=== PATIENT | male | born 2000 | race Two or more races ===

== ENCOUNTER 2025-02-18 05:49 | Emergency (ER) | payer MEDICAID, OTHER ==
[~2025-02-18] VITALS: Ht 180.3 cm; Wt 130.0 kg
[2025-02-18 07:41] VITALS: BP 130/64; PULSE 109; RESP 19; TEMP 98; O2SAT 100
[2025-02-18] MEDS ORDERED: DIPH25CA66 PO (07:53)
[2025-02-18] MEDS ORDERED: PER60TP TOP (07:53)
--- NOTE | 2025-02-18 07:54 | ED.PDOC ---
SCRIBE Scribe Authentication: Beverly Trujillo , certified that the note below was transcribed by me on 02/18/25 at 07:17 HR for Provider: History of Present Illness(SKN Chief Complaint: Body Pain Time Seen by MD: 06:40 History of Present Illness: Nurses Notes, Medications, Allergies Allergies: Coded Allergies: NO KNOWN ALLERGIES (Unverified , 02/18/25) Information Source: Patient Mode of Arrival: EMS Severity: Moderate Timing: Months, Came on: Gradually Duration: Since onset Location: Generalized Mechanism: Scabies Developed: Pruritus, Rash Occurence: Indoors Object: Unknown Condition of Object: None Retained Foreign Body: No Wound Type: Papule Immunization Status of Animal: NA Tetanus: UTD History of: Previous Similar Rash Associated Signs and Symptoms: Redness, Red Streaking Past Medical History Past Medical History (Other): Cirrhosis Surgical History (Other): eye surgery Family History Family History: Reviewed,noncontributory to illness, No family hx of Cancer, No family hx of DM, No family hx of Heart stefania, No family hx of HTN, No family hx ofKidney stefania, No family hx of Liver stefania, No family hx of Lung stefania, No family hx of Stroke Social History Smoker: Non-Smoker Alcohol: Heavy Drugs: Denies Drug Use Lives In: Homeless Constitutional: denies: chills, diaphoresis, fatigue, fever, malaise, sweats, weakness, others EENTM: denies: blurred vision, double vision, ear bleeding, ear discharge, ear drainage, ear pain, ear ringing, eye pain, eye redness, hearing loss, mouth pain, mouth swelling, nasal discharge, nose bleeding, nose congestion, nose pain, photophobia, tearing, throat pain, throat swelling, voice changes, others Respiratory: denies: cough, hemoptysis, orthopnea, SOB at rest, shortness of breath, SOB with excertion, stridor, wheezing, others Cardiovascular: denies: chest pain, dizzy spells, diaphoresis, Dyspnea on exertion, edema, irregular heart beat, left arm pain, lightheadedness, palpitations, PND, syncope, others Gastrointestinal: denies: abdomen distended, abdominal pain, blood streaked bowels, constipated, diarrhea, dysphagia, difficulty swallowing, hematemesis, melena, nausea, poor appetite, poor fluid intake, rectal bleeding, rectal pain, vomiting, others Genitourinary: denies: burning, dysuria, flank pain, frequency, hematuria, incontinence, penile discharge, penile sore, pain, testicle pain, testicle s welling, urgency, others Neurological: denies: dizziness, fainting, headache, left sided numbness, left sided weakness, numbness, paresthesia, pre-existing deficit, right sided numbness, right sided weakness, seizure, speech problems, tingling, tremors, weakness, others Musculoskeletal: denies: back pain, gout, joint pain, joint swelling, muscle pain, muscle stiffness, neck pain, others Integumetry: reports: dryness, lesions, rash; denies: bruises, change in color, change in hair/nails, laceration, lumps, wounds, others Allergic/Immunocompromised: denies: Difficulty Healing, Frequent Infections, Hives, Itching, others Hematologic/Lymphatic: denies: anemia, blood clots, easy bleeding, easy bruising, swollen glands, others Endocrine: denies: excessive hunger, excessive sweating, excessive thirst, excessive urination, flushing, intolerance to cold, intolerance to heat, unexplained weight gain, unexplained weight loss, others Psychiatric: denies: anxiety, bipolar disorder, depression, hopeless, panic disorder, schizophrenia, sleepless, suicidal, others All Other Systems: Reviewed and Negative Physical Exam General Appearance: Mild Distress, Thin HEENT: Normal ENT Inspection, PERRL/EOMI, Pharynx Normal, TMs Normal Neck: Full Range of Motion, Non-Tender, Normal, Normal Inspection Respiratory: Chest Non-Tender, Lungs Clear, No Accessory Muscle Use, No Respiratory Distress, Normal Breath Sounds Cardiovascular: No Edema, No JVD, No Murmur, No Gallop, Normal Peripheral Pulses, Regular Rate/Rhythm Breast Exam: Deferred Gastrointestinal: No Organomegaly, Non Tender, No Pulsatile Mass, Normal Bowel Sounds, Soft Genitalia: Deferred Pelvic: Deferred Rectal: Deferred Extremities: No calf tenderness, Normal capillary refill, Normal inspection, Normal range of motion, Non-tender, No pedal edema Neurologic: Alert, wool washer feeder II-XII nml as Tested, No Motor Deficits, Normal Affect, Normal Mood, No Sensory Deficits Cerebellar Function: Normal Reflexes: Normal Skin: Dry, Normal Color, Rash, Wounds Peripheral Pulses: 1+ carotid (R), 1+ carotid (L) Lymphatic: No Adenopathy Was a procedure done? Was a procedure done?: No Differential Diagnosis (INTG) Differential Diagnosis: Insect Envenomation Differential Diagnosis: Contact Dermatitis, Scabies Differential Diagnosis: N/A Abscess: N/A Differential Diagnosis: N/A X-Ray, Labs, Meds, VS Vital Signs Date Time Temp Pulse Resp B/P (MAP) Pulse Ox O2 Delivery O2 Flow Rate FiO2 02/18/25 05:49 99.1 112 18 142/92 98 99.1 X-Ray, Labs, Meds, VS Comment Patient presented to the [facility] complaining of body pain and extreme itching duration . is one year was diagnosed with scabies several times with recurrences patient is homeless Time of 1ST Reevaluation: 07:26 Reevaluation 1ST: Unchanged Consultation: PCP Patient Education/Counseling: Diagnosis, Treatment, Prognosis, Need For Follow Up Family Education/Counseling: Diagnosis, Treatment, Prognosis, Need For Follow Up, No Family Present SEPSIS Sepsis Screen Date sepsis recognized/suspect: Feb 18, 2025 Time Sepsis recognized/suspect: 0549 Recent Procedure: No On Antibiotic Therapy: No Respiratory Rate >20: No Heart Rate >90: No Temp<36 C (96.8 F) or >38.3 C: No SBP <90 or MAP <65 mmHG: No New Acute Mental Status Change: No Is the patient on CPAP, BIPAP,: Yes Vital Signs Date Time Temp Pulse Resp B/P (MAP) Pulse Ox O2 Delivery O2 Flow Rate FiO2 02/18/25 05:49 99.1 112 18 142/92 98 99.1 Departure 1 Departure Time of Disposition: 07:27 Impression: Primary Impression: Scabies infestation Additional Impressions: Pruritus Homelessness Disposition: 01 HOME / SELF CARE / HOMELESS Condition: Fair Additional Instructions: Needs strict hygiene and multiple showers e-Prescriptions Diphenhydramine Hcl (Benadryl Allergy) 25 Mg Cap 1 CAP PO TID for 10 Days, #30 CAP 1 Refill Prov: SHARIFA TRUJILLO MD 02/18/25 Permethrin (Elimite) 5 % Cre 1 APPLIC TOP ONCE for 2 Days, #120 GRAMS 1 Refill Prov: SHARIFA TRUJILLO MD 02/18/25 Discharged With: Self Critical Care Note Critical Care Time?: No Stability Stability form required: No [email or web address] Provider Statement: The above service was scribed on my behalf by the person named below and I attest to the accuracy of the note. Heart Score Heart Score: Heart Score Response (Comments) Value History N/A 0 EKG N/A 0 Age <45 0 Risk Factors 1 or 2 risk factors 1 Troponin N/A 0 Total 1 SHARIFA TRUJILLO MD Feb 18, 2025 07:53
== END 2025-02-18 08:02 | disposition home or self-care (01) ==
LOC: EDBD 05:49 → ER 05:49
DX: B86 Scabies (principal); L29.9 Pruritus, unspecified; F10.90 Alcohol use, unspecified, uncomplicated; Z59.00 Homelessness unspecified

== ENCOUNTER 2025-02-22 15:08 | Emergency (ER) | payer MEDICAID ==
[~2025-02-22] VITALS: Ht 172.7 cm; Wt 59.0 kg
[~2025-02-22 15:08] MED LIST: DIPH25CA66 PO; PER60TP TOP
--- NOTE | 2025-02-22 15:32 | ED.PDOC ---
History of Present Illness HPI Comments 25-year-old male BIBCaterina with prior medical history of cirrhosis: Surgical history of eye surgery and a chief complaint of scabies. EMS report on finding the patient in front of the best by covered in cream for his scabies. Patient is currently complaining of full body pain which is a 10/10 on the pain scale. Blood pressure on scene was 152/80. Note patient is also homeless. Denies any other symptoms at this time. Denies chills, fever, N/V/D, SOB, CP. No other associated symptoms, modifiers, recent injuries or sick contacts present at this time. 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, Medications, Allergies Allergies: Coded Allergies: NO KNOWN ALLERGIES (Unverified , 02/18/25) Home Meds Active Scripts Diphenhydramine Hcl (Benadryl Allergy) 25 Mg Cap, 1 CAP PO TID for 10 Days, #30 CAP 1 Refill Prov:SHARIFA TRUJILLO MD 02/18/25 Permethrin (Elimite) 5 % Cre, 1 APPLIC TOP ONCE for 2 Days, #120 GRAMS 1 Refill Prov:SHARIFA TRUJILLO MD 02/18/25 Information Source: Patient Mode of Arrival: EMS Severity: Moderate Timing: Came on: Suddenly Duration: Since onset Prehospital treatment: None Past Medical History Past Medical History (Other): Cirrhosis Surgical History (Other): eye surgery Family History Family History: Reviewed,noncontributory to illness, Unknown Social History Smoker: Non-Smoker Alcohol: Heavy Drugs: Denies Drug Use Lives In: Homeless Constitutional: reports: others (Full body pain for scabies); denies: chills, diaphoresis, fatigue, fever, malaise, sweats, weakness EENTM: denies: blurred vision, double vision, ear bleeding, ear discharge, ear drainage, ear pain, ear ringing, eye pain, eye redness, hearing loss, mouth pain, mouth swelling, nasal discharge, nose bleeding, nose congestion, nose pain, photophobia, tearing, throat pain, throat swelling, voice changes, others Respiratory: denies: cough, hemoptysis, orthopnea, SOB at rest, shortness of breath, SOB with excertion, stridor, wheezing, others Cardiovascular: denies: chest pain, dizzy spells, diaphoresis, Dyspnea on exertion, edema, irregular heart beat, left arm pain, lightheadedness, palpitations, PND, syncope, others Gastrointestinal: denies: abdomen distended, abdominal pain, blood streaked bowels, constipated, diarrhea, dysphagia, difficulty swallowing, hematemesis, melena, nausea, poor appetite, poor fluid intake, rectal bleeding, rectal pain, vomiting, others Genitourinary: denies: burning, dysuria, flank pain, frequency, hematuria, incontinence, penile discharge, penile sore, pain, testicle pain, testicle swelling, urgency, others Neurological: denies: dizziness, fainting, headache, left sided numbness, left sided weakness, numbness, paresthesia, pre-existing deficit, right sided numbness, right sided weakness, seizure, speech problems, tingling, tremors, weakness, others Musculoskeletal: denies: back pain, gout, joint pain, joint swelling, muscle pain, muscle stiffness, neck pain, others Integumetry: denies: bruises, change in color, change in hair/nails, dryness, laceration, lesions, lumps, rash, wounds, others Allergic/Immunocompromised: denies: Difficulty Healing, Frequent Infections, Hives, Itching, others Hematologic/Lymphatic: denies: anemia, blood clots, easy bleeding, easy bruising, swollen glands, others Endocrine: denies: excessive hunger, excessive sweating, excessive thirst, excessive urination, flushing, intolerance to cold, intolerance to heat, unexplained weight gain, unexplained weight loss, others Psychiatric: denies: anxiety, bipolar disorder, depression, hopeless, panic disorder, schizophrenia, sleepless, suicidal, others All Other Systems: Reviewed and Negative Physical Exam General Appearance: Moderate Distress, Normal HEENT: Normal ENT Inspection, Pharynx Normal, TMs Normal Neck: Full Range of Motion, Non-Tender, Normal, Normal Inspection Respiratory: Chest Non-Tender, Lungs Clear, No Accessory Muscle Use, No Respiratory Distress, Normal Breath Sounds Cardiovascular: No Edema, No JVD, No Murmur, No Gallop, Normal Peripheral P ulses, Regular Rate/Rhythm Breast Exam: Deferred Gastrointestinal: No Organomegaly, Non Tender, No Pulsatile Mass, Normal Bowel Sounds, Soft Genitalia: Deferred Pelvic: Deferred Rectal: Deferred Extremities: No calf tenderness, Normal capillary refill, Normal inspection, Normal range of motion, Non-tender, No pedal edema Musculoskeletal : Apperance: Normal Neurologic: Alert, field clinical engineer II-XII nml as Tested, No Motor Deficits, Normal Affect, Normal Mood, No Sensory Deficits Cerebellar Function: Normal Reflexes: Normal Skin: Dry, Normal Color, Warm Peripheral Pulses: 3+ Radial (R), 3+ Radial (L) Lymphatic: No Adenopathy Was a procedure done? Was a procedure done?: No Differential Dx Considerations may include: Anxiety X-Ray, Labs, Meds, VS Vital Signs Date Time Temp Pulse Resp B/P (MAP) Pulse Ox O2 Delivery O2 Flow Rate FiO2 02/22/25 16:02 98.0 124 18 152/88 100 98.0 Patient alert. States that he has skin condition. Vitals stable. Answering questions. Saturation pristine on room air. Blood pressure slightly elevated. He does not take care himself. 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 No leg swelling. No shortness a breath. No chest pain. Medically cleared. No acute process. Was told to follow up with his primary care physician. Was told to come back if there is any problem. Time of 1ST Reevaluation: 15:28 Reevaluation 1ST: Improved Patient Education/Counseling: Diagnosis, Treatment, Prognosis Family Education/Counseling: No Family Present SEPSIS Sepsis Screen Physician Orders * Red Hat Engineer Consult (02/22/25 ) Vital Signs Date Time Temp Pulse Resp B/P (MAP) Pulse Ox O2 Delivery O2 Flow Rate FiO2 02/22/25 16:02 98.0 124 18 152/88 100 98.0 Departure 1 Departure Time of Disposition: 16:38 Impression: Primary Impression: Pruritus Additional Impression: Anxiety Disposition: 01 HOME / SELF CARE / HOMELESS Condition: Good Discharged With: Self Critical Care Note Critical Care Time?: No Stability Stability form required: No Heart Score Heart Score: Heart Score Response (Comments) Value History N/A 0 EKG N/A 0 Age N/A 0 Risk Factors N/A 0 Troponin N/A 0 Total 0 I personally scribed for VAMSHI VARGAS MD ([email or web address]) on 02/22/25 at 15:32. Electronically submitted by Anuj Hargrove ([email or web address]). VAMSHI VARGAS MD Feb 22, 2025 15:32
[2025-02-22 15:55] VITALS: PULSE 82; RESP 16; O2SAT 96
[2025-02-22 19:30] VITALS: PULSE 80; RESP 18; O2SAT 97
[2025-02-23 08:00] VITALS: BP 136/75; PULSE 76; RESP 18; TEMP 98; O2SAT 97
== END 2025-02-23 09:53 | disposition home or self-care (01) ==
LOC: EDBD 15:08 → EDUNIT# 15:08 → ER 15:08
DX: L29.9 Pruritus, unspecified (principal); F41.9 Anxiety disorder, unspecified; F10.90 Alcohol use, unspecified, uncomplicated; Z79.899 Other long term (current) drug therapy; Z59.00 Homelessness unspecified

== ENCOUNTER 2025-02-23 22:51 | Emergency (ER) | payer MEDICAID ==
[~2025-02-23] VITALS: Ht 182.9 cm; Wt 59.0 kg
[2025-02-23 23:24] LABS: Hematocrit 38.4 % (41.0-53.0); Hemoglobin 13.2 g/dL (13.5-17.5); Mean Corpuscular Hemoglobin 31.1 pg (28.0-32.0); Mean Corpuscular Volume 90.7 fL (80.0-100.0); Nucleated Red Blood Cells % 0.0 %
[2025-02-23 23:58] LABS: Chloride 106 mmol/L (98-107); Sodium 141 mmol/L (136-145)
[2025-02-23 23:59] LABS: Anion Gap 9 (5-15); Calcium 9.7 mg/dL (8.7-10.4); Carbon Dioxide 26 mmol/L (20-31)
--- NOTE | 2025-02-24 00:02 | ED.PDOC ---
History of Present Illness HPI Comments 25-year-old male who came to ER for suicide ideations. Patient is homeless, has a history of schizophrenia with has poor compliance to his medications. Patient states he has been feeling suicidal recently, plans on either drowning or shooting himself. States he also has been having auditory visual hallucina tions. Denies being homicidal. REVIEW OF SYSTEMS: General: No fever, no chills, or fatigue HEENT: No sore throat, no earache, no congestion, no neck pain. Cardiac: No chest pain. No palpitations. Lungs: No shortness of breath, no cough. GI: No nausea, no vomiting, no diarrhea, no constipation, no abdominal pain : No dysuria, frequency, or urgency. No hematuria. Musculoskeletal: No joint pain , no joint swelling, no extremity edema. Skin: No rash, no itching. Neuro: No headache, no dizziness, no weakness Psych: (+) schizophrenia (+) suicidal PHYSICAL EXAM: General: Awake, alert and oriented. No acute distress. Skin: Skin in warm, dry and intact without rashes or lesions. HEENT: The head is normocephalic and atraumatic. Conjunctivae are clear without exudates or hemorrhage. Sclera is non-icteric. Neck: Normal range of motion. No JVD. Cardiac: Regular rate Respiratory: No signs of respiratory distress. No Stridor. Extremities: Upper and lower extremities are atraumatic in appearance without deformity. Neurological: The patient is awake, alert and oriented to person, place, and time with normal speech. Speech is clear. There is no facial asymmetry. Psychiatric: Anxious appearing Chief Complaint: Suicidal Time Seen by MD: 00:02 Reviewed Notes: Nurses Notes Allergies: Coded Allergies: NO KNOWN ALLERGIES (Unverified , 02/18/25) Home Meds Active Scripts Diphenhydramine Hcl (Benadryl Allergy) 25 Mg Cap, 1 CAP PO TID for 10 Days, #30 CAP 1 Refill Prov:SHARIFA TRUJILLO MD 02/18/25 Permethrin (Elimite) 5 % Cre, 1 APPLIC TOP ONCE for 2 Days, #120 GRAMS 1 Refill Prov:SHARIFA TRUJILLO MD 02/18/25 Information Source: Patient Mode of Arrival: EMS Past Medical History PAST MEDICAL HISTORY: Schizophrenia Surgical History: Denies all surgeries Family History Family History: Reviewed,noncontributory to illness, Unknown Social History Smoker: Non-Smoker Alcohol: Heavy Drugs: Denies Drug Use Lives In: Homeless Was a procedure done? Was a procedure done?: No Differential Dx Considerations may include: Schizophrenia, suicide ideation, anxiety, depression X-Ray, Labs, Meds, VS Vital Signs Date Time Temp Pulse Resp B/P (MAP) Pulse Ox O2 Delivery O2 Flow Rate FiO2 02/24/25 03:57 98.0 86 20 145/86 (105) 95 98.0 02/24/25 03:57 95 Room Air* 0 21 02/23/25 22:51 98.3 81 16 127/83 98 98.3 Lab Test 02/23/25 23:15 Range/Units White Blood Count 8.0 4.4-10.8 10^3/uL Red Blood Count 4.24 L 4.5-5.90 10^6/uL Hemoglobin 13.2 L 13.5-17.5 g/dL Hematocrit 38.4 L 41.0-53.0 % Mean Corpuscular Volume 90.7 80.0-100.0 fL Mean Corpuscular Hemoglobin 31.1 28.0-32.0 pg Mean Corpuscular Hemoglobin Concent 34.3 32.0-36.0 g/dL Red Cell Distribution Width 12.2 11.8-14.3 % Platelet Count 307 140-450 10^3/uL Mean Platelet Volume 8.2 6.9-10.8 fL Neutrophils (%) (Auto) 59.6 37.0-80.0 % Lymphocytes (%) (Auto) 27.6 10.0-50.0 % Monocytes (%) (Auto) 11.0 0.0-12.0 % Eosinophils (%) (Auto) 0.7 0.0-7.0 % Basophils (%) (Auto) 1.1 0.0-2.0 % Neutrophils # (Auto) 4.8 1.6-8.6 10 ^3/uL Lymphocytes # (Auto) 2.2 0.4-5.4 10 ^3/uL Monocytes # (Auto) 0.9 0-1.3 10 ^3/uL Eosinophils # (Auto) 0.1 0-0.8 10 ^3/uL Basophils # (Auto) 0.1 0-0.2 10 ^3/uL Nucleated Red Blood Cells 0.0 % Sodium Level 141 136-145 mmol/L Potassium Level 3.4 L 3.5-5.1 mmol/L Chloride Level 106 98-107 mmol/L Carbon Dioxide Level 26 20-31 mmol/L Anion Gap 9 5-15 Blood Urea Nitrogen 7 L 9-23 mg/dL Creatinine 0.86 0.700-1.30 mg/dL Glomerular Filtration Rate Calc 122 >90 mL/min BUN/Creatinine Ratio 8.1 L 10.0-20.0 Serum Glucose 94 74-106 mg/dL Calcium Level 9.7 8.7-10.4 mg/dL Plasma/Serum Blood Alcohol < 3.0 <10 mg/dL Current Medications Medications (Trade) Dose Ordered Sig/Nan Route Start Time Stop Time Status Last Admin Diphenhydramine HCl (Benadryl Capsule) 25 mg ONCE ONCE PO 02/24/25 02:15 02/24/25 02:16 DC 02/24/25 02:59 Acetaminophen (Tylenol Tablet) 650 mg ONCE ONCE PO 02/24/25 04:45 02/24/25 04:46 DC 02/24/25 04:49 Time of 1ST Reevaluation: 23:58 Reevaluation 1ST: Unchanged Patient Education/Counseling: Other Family Education/Counseling: Other Change of Shift?: Yes (25-year-old male who presented to the emergency department with suicidal ideation. He was evaluated by Psychiatry in place on a voluntary hold. Pending placement at psychiatric facility.@ [address] Weir pending psychiatric placement at psychiatric facility. ) SEPSIS Sepsis Screen Date sepsis recognized/suspect: Feb 23, 2025 Time Sepsis recognized/suspect: 2250 Recent Procedure: No On Antibiotic Therapy: No Respiratory Rate >20: No Heart Rate >90: No Temp<36 C (96.8 F) or >38.3 C: No SBP <90 or MAP <65 mmHG: No New Acute Mental Status Change: No Is the patient on CPAP, BIPAP,: No Physician Orders * Psychiatric Consult (02/23/25 02:21) Sitter At Bedside (02/23/25 23:07) Urinalysis (02/23/25 23:07) Drug Screen (02/23/25 23:07) Soc Telemed Psych Consult (02/23/25 23:07) Vital Signs Date Time Temp Pulse Resp B/P (MAP) Pulse Ox O2 Delivery O2 Flow Rate FiO2 02/24/25 03:57 98.0 86 20 145/86 (105) 95 98.0 02/24/25 03:57 95 Room Air* 0 21 02/23/25 22:51 98.3 81 16 127/83 98 98.3 Laboratory Tests Test 02/23/25 23:15 White Blood Count 8.0 10^3/uL (4.4-10.8) Medications Medications Dose Ordered Sig/Nan Route Start Time Stop Time Status Last Admin Dose Admin Acetaminophen 650 mg ONCE ONCE PO 02/24/25 04:45 02/24/25 04:46 DC 02/24/25 04:49 Diphenhydramine HCl 25 mg ONCE ONCE PO 02/24/25 02:15 02/24/25 02:16 DC 02/24/25 02:59 Departure 1 Departure Time of Disposition: 06:00 Impression: Primary Impression: Suicidal ideation Disposition: 30 STILL A PATIENT Condition: Stable Critical Care Note Critical Care Time?: No Stability Stability form required: No Heart Score Heart Score: Heart Score Response (Comments) Value History N/A 0 EKG N/A 0 Age N/A 0 Risk Factors N/A 0 Troponin N/A 0 Total 0 I personally scribed for JUAN DAVID HORTON MD ([email or web address]) on 02/24/25 at 00:02. Electronically submitted by Osvaldo Max ([email or web address]). JUAN DAVID HORTON MD Feb 24, 2025 00:02
[2025-02-24 00:04] LABS: BUN/Creatinine Ratio 8.1 (10.0-20.0); Glucose 94 mg/dL (74-106)
[2025-02-24 00:12] LABS: Blood Urea Nitrogen 7 mg/dL (9-23); Potassium 3.4 mmol/L (3.5-5.1)
--- NOTE | 2025-02-24 02:51 | DVHINCON2 ---
Date of Service if different f: Feb 24, 2025 Time of Service: 02:30 Consult Consult Note PSYCHIATRY ED NEW CONSULT HPI: 25 yo pt with PPH of depression, ?delusional disorder, and anxiety presents to ED for safety, psychiatric stabilization, and possible med initiation in setting of homelessness, AH/grandiose delusions, depression, and passive SI. Psychiatry consulted for safety evaluation and recommendations in context of current presentation Pt reports over past several weeks experiencing worsening depressed mood, grandiose delusions - 'I met eber several times, he invited me to [employer] for private dinner", NC/NT AH and passive SI with plan to drown/shoot self although no actual intent. Identifies primary stress as unemployment, inadequate housing, etc. Denies HI/VH/paranoia/catatonic/manic/dissociative symptoms. Denies recent hx of impulsivity or engaging in risky/reckless behaviors Does not have active outpt MH services established at this time Currently not on any psychotropic agents for past decade, prior psych med trials include sertraline ANATOLIY hx: Denies ETOH, THC or IDU prior to admission although mild hx of THC/ETOH/meth/opiate dependency, sober for past 5 years, hx of IVDU, previously in several drug/etoh tx programs in past SH: Single, two children with minimal contact, unemployed, currently homeless for past several months, some support system noted (immediate family reside in [place]). Unknown trauma hx FH: Denies FH of psych hospitalizations, suicide attempts, or completed suicides PMH: No acute medical/chronic pain issues, hx of seizures/TBI, HIV/hep C, cardiac dz, or recent head injuries, NKDA Denies hx of SIB/SA/PSG. Several prior psych hospitalizations/5150 holds - last admission in 2021. Some history of aggression/ assaultive behaviors primarily when intoxicated. Denies any legal problems. Does not have access to firearms. MSE: General Appearance/Behavior: Alert/awake; appears stated aget, fair groomin g/hygiene; calm/polite and cooperative, fair eye contact, no PMA/PMR Speech: coherent, rrr Thought Process: L/L/GD Thought Content: Abnormal Thoughts/Perceptions: denies dissociative symptoms Homicidality / Violent Thoughts: adamantly denies HI Suicidality: passive SI Hallucinations: denies AVTH Delusions: + grandiose delusions Obsessions /compulsions: None Judgment/Insight: fair/fair Mood & Affect: "okay" with mood-congruent,bit elevated/appropriate Orientation: oriented x 3 Attention/Concentration: appears intact Cognition: grossly intact Assessment: 25 yo pt with PPH of depression, ?delusional disorder, and anxiety presents to ED for safety, psychiatric stabilization, and possible med initiation in setting of homelessness, AH/grandiose delusions, depression, and passive SI Pt currently expressing SI with plan to shoot self although no intent, also vague NC/NT AH and grandiose delusions Denies ETOH/THC or IDU Not on any psychotropics which may be contributing to current symptoms. No outpt MH services at present Medically cleared in ED Acute safety risk remains slightly elevated and is appropriate for inpatient psychiatric admission for further safety, psychiatric stabilization, and possible medication initiation. Pt willing to transfer to inpt psych facility voluntarily. Consider 5150 hold for DTS if needed for transfer or if no voluntary beds are available. May also benefit from housing/MH resources during this admission Primary Diagnosis:Psychotic disorder unspecified. Mood disorder unspecified Recommend VOL transfer to inpt psych facility for higher level of care 1:1 sitter is not recommended Maintain suicide/elopement precautions Recommend starting Abilify 5 mg bid - first dose now Risks/benefits/alternative treatments discussed, informed consent provided by pt If patient later refuses voluntary hospitalization/ requests to be discharged from ED prior to transfer, pt can be discharged WITHOUT psych reassessment or 5150 hodl evaluation, rather SW consultation for housing resources would be advisable in addition to ensure adequate supply of abilify 5 mg bid at time of discharge Pt verbalized understanding and is receptive to above tx plan This case was discussed with ED nurse/provider and all parties in agreement with above tx plan Medardo Snow MD Plan discussed with: Patient MEDARDO SNOW MD Feb 24, 2025 02:51
[2025-02-24 03:57] VITALS: O2SAT 95
[2025-02-24] MEDS: ACETAMINOPHEN 325 MG TAB PO ONE (04:49)
[2025-02-24] MEDS: OLANZapine 5 MG TAB PO ONE (06:16)
[2025-02-24 08:01] VITALS: PULSE 86; RESP 18; O2SAT 96
[2025-02-24 20:04] VITALS: PULSE 87; RESP 18; O2SAT 98
[2025-02-25 08:04] VITALS: BP 157/100; PULSE 118; RESP 18; TEMP 97.8; O2SAT 100
== END 2025-02-25 13:15 | disposition left against medical advice (07) ==
LOC: EDUNIT# 22:51 → ER 22:51 → EDBD 22:51 → ER 02-25 13:15
DX: R45.851 Suicidal ideations (principal); F20.9 Schizophrenia, unspecified; F32.A Depression, unspecified
CPT/HCPCS: 36415; 80048; 80320; 85025